=== PATIENT | male | born 1980 | race Caucasian/White ===

== ENCOUNTER → 2020-11-02 10:31 | Outpatient (CLI) | payer OTHER, SELFPAY ==
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
== END ==
PROVIDERS: PCP Nurse Practitioner Family; Visit Provider Nurse Practitioner Family
DX: M54.41 Lumbago with sciatica, right side (principal)
CPT/HCPCS: 72110

== ENCOUNTER → 2020-11-15 15:02 | Outpatient (CLI) | payer OTHER, SELFPAY ==
--- NOTE | 2020-11-15 15:15 | MR_ITS ---
PROCEDURE: MR LUMBAR SPINE WO CON CLINICAL INDICATION: LBP COMPARISON: CR XR LUMBAR SPINE MIN 4V from 11/02/2020 TECHNIQUE: Standard multiplanar multiecho sequences are performed without contrast. 3-D MIP and myelographic images are also rendered and reviewed FINDINGS: There is diffuse straightening of the normal lordosis of the lumbar spine suggesting muscle spasm. There is normal height and otherwise normal alignment of the lumbar vertebral bodies. There are degenerative signal changes at L5-S1. There is severe L5-S1 disc space narrowing. There is moderate L4-5 disc space narrowing. The spinal cord terminates at a normal level with a normal appearance of the conus. Minimal visualization of the surrounding structures is unremarkable. L1-2: No significant degenerative change or narrowing. L2-3: No significant degenerative change or narrowing. L3-4: No significant degenerative change or narrowing. L4-5: There is diffuse endplate osteophyte disc bulge for with a shallow central disc protrusion of unknown age. This causes narrowing of the left lateral recess which could impinge on the traversing left L5 nerve root. No additional significant narrowing at this level. L5-S1: There is diffuse endplate osteophyte disc bulge with small central disc protrusion of unknown age. 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 There is no significant central canal narrowing. There is moderate to severe left greater than right foraminal narrowing which could impinge on the exiting left greater than right nerve roots. IMPRESSION: 1. Degenerative changes of the lower lumbar spine suspected superimposed muscle spasm. 2. L4-5 and L5-S1 small disc protrusions of unknown age. 3. Lateral recess and foraminal narrowing at L4-5 and L5-S1 which could impinge on the traversing and exiting L5 nerve roots. Dictated by: Madeleine Jackson MD 11/15/2020 19:31 Madeleine Jackson MD in [facility] 11/15/2020 19:31
== END ==
PROVIDERS: PCP Nurse Practitioner Family; Visit Provider Family Medicine
DX: M54.41 Lumbago with sciatica, right side (principal); R93.7 Abnormal findings on diagnostic imaging of other parts of musculoskeletal system
CPT/HCPCS: 72148; 76376